=== PATIENT | female | born 1945 | race Caucasian/White ===

== ENCOUNTER 2017-10-21 10:12 | Emergency (ER) | payer OTHER ==
[~2017-10-21] VITALS: Ht 162.6 cm; Wt 63.5 kg
[2017-10-21 10:20] VITALS: Ht 162.6 cm; Wt 63.5 kg
[2017-10-21] MEDS ORDERED: HYDRALAZINE HCL25 MG PO (10:41)
[2017-10-21] MEDS ORDERED: LOSARTAN POTASS50 M1 PO (10:41)
[2017-10-21] MEDS ORDERED: SIMVASTATIN40 M1 PO (10:41)
[2017-10-21] MEDS ORDERED: LASIX20 MG PO (10:41)
[2017-10-21] MEDS ORDERED: ASPIR LOW81 MG PO (10:41)
[2017-10-21] MEDS ORDERED: GABAPENTIN100 M2 PO (10:42)
[2017-10-21] MEDS ORDERED: GLUCOTROL5 MG PO (10:42)
[2017-10-21 11:59] LABS: CALCIUM 9.3 mg/dL (8.5-10.1); CHLORIDE SERUM 103 mmol/L (98-107); CREATININE SERUM 2.1 mg/dL (0.6-1.0); GLUCOSE SERUM 308 mg/dL (74-106); POTASSIUM SERUM 5.4 mmol/L (3.5-5.1); SODIUM SERUM 139 mmol/L (136-145)
[2017-10-21 12:04] LABS: ALBUMIN 3.6 g/dL (3.4-5.0); ALKALINE PHOSPHATASE 108 U/L (46-116); ALT/SGPT 24 U/L (14-59); AST/SGOT 18 U/L (15-37); TOTAL PROTEIN, SERUM 7.2 g/dL (6.4-8.2)
[2017-10-21 12:09] LABS: BASOPHIL % 0.4 % (0-2); PLATELET COUNT 206 x10^3mcL (130-400); RED CELL DISTRIBUTION WIDTH 12.8 % (11.5-14.5)
[2017-10-21 16:22] VITALS: BP 116/87
== END 2017-10-21 16:22 | disposition home or self-care (01) ==
LOC: ED 10:12
PROVIDERS: Emergency Medicine Emergency Medical Services
DX: E11.65 Type 2 diabetes mellitus with hyperglycemia (principal); I10 Essential (primary) hypertension; F03.90 Unspecified dementia, unspecified severity, without behavioral disturbance, psychotic disturbance, mood disturbance, and anxiety; Z86.73 Personal history of transient ischemic attack (TIA), and cerebral infarction without residual deficits
CPT/HCPCS: 36415; Q0092

== ENCOUNTER 2017-11-01 15:02 | Emergency (ER) | payer OTHER ==
[~2017-11-01] VITALS: Ht 157.5 cm; Wt 86.2 kg
[~2017-11-01 15:02] MED LIST: ASPIR LOW81 MG PO; GABAPENTIN100 M2 PO; GLUCOTROL5 MG PO; HYDRALAZINE HCL25 MG PO; LASIX20 MG PO; LOSARTAN POTASS50 M1 PO; SIMVASTATIN40 M1 PO
[2017-11-01 15:19] VITALS: Ht 157.5 cm; Wt 86.2 kg
[2017-11-01 17:08] LABS: microscopic required? YES; urine erythrocyte NEGATIVE (NEGATIVE)
[2017-11-01 17:10] LABS: BASOPHIL % 1.3 % (0-2); PLATELET COUNT 239 x10^3mcL (130-400); RED CELL DISTRIBUTION WIDTH 13.2 % (11.5-14.5)
[2017-11-01 17:23] LABS: CALCIUM 8.9 mg/dL (8.5-10.1); CARBON DIOXIDE 27.8 mmol/L (21-32); CHLORIDE SERUM 102 mmol/L (98-107); GLUCOSE SERUM 205 mg/dL (74-106); SODIUM SERUM 136 mmol/L (136-145)
[2017-11-01 17:25] LABS: ALBUMIN 3.6 g/dL (3.4-5.0); ALKALINE PHOSPHATASE 114 U/L (46-116); ALT/SGPT 28 U/L (14-59); AST/SGOT 22 U/L (15-37); BILIRUBIN TOTAL 0.7 mg/dL (0.20-1.00); TOTAL PROTEIN, SERUM 7.2 g/dL (6.4-8.2)
[2017-11-01 18:17] VITALS: BP 172/66
== END 2017-11-01 18:17 | disposition short-term general hospital (02) ==
LOC: ED 15:02
PROVIDERS: Emergency Medicine
DX: I63.9 Cerebral infarction, unspecified (principal); I10 Essential (primary) hypertension; E11.9 Type 2 diabetes mellitus without complications; F03.90 Unspecified dementia, unspecified severity, without behavioral disturbance, psychotic disturbance, mood disturbance, and anxiety; Z79.899 Other long term (current) drug therapy
CPT/HCPCS: 36415; 83880; Q0092